=== PATIENT | female | born 1985 | race Two or more races ===

== ENCOUNTER 2021-01-07 13:09 | Emergency (ER) | payer MEDICAID ==
[~2021-01-07] VITALS: Ht 160 cm; Wt 62.1 kg
[2021-01-07] MEDS ORDERED: MORPHINE SULFATE 4 MG/1 ML DISP.SYRIN IM ONE (13:45)
[2021-01-07] MEDS ORDERED: ONDANSETRON ODT 4 MG TAB.RAPDIS SL STA (13:52)
[2021-01-07] MEDS ORDERED: MORPHINE SULFATE 4 MG/1 ML DISP.SYRIN ONE (13:53)
[2021-01-07] MEDS ORDERED: ONDANSETRON ODT 4 MG TAB.RAPDIS ONE (13:57)
[2021-01-07] MEDS ORDERED: DOCU100C36 PO (13:59)
[2021-01-07] MEDS ORDERED: HYDR-4209 PO (13:59)
[2021-01-07] MEDS ORDERED: ONDA4TAB11 PO (13:59)
[2021-01-07] MEDS ORDERED: HYDR453.3 TP (13:59)
--- NOTE | 2021-01-07 14:12 | NUR ---
Gave pt RX and d/c instructions, pt verbalized understanding.
== END 2021-01-07 14:16 | disposition home or self-care (01) ==
LOC: ER 13:23
DX: K64.5 Perianal venous thrombosis (principal)
CPT/HCPCS: 96372; 99283; J2270; A4663; Q0162

== ENCOUNTER 2023-03-28 00:53 | Emergency (ER) | payer MEDICAID ==
[~2023-03-28 00:53] MED LIST: DOCU100C36 PO; HYDR-4209 PO; HYDR453.3 TP; ONDA4TAB11 PO
== END 2023-03-28 02:00 | disposition left against medical advice (07) ==
LOC: ER 01:15
DX: Z53.21 Procedure and treatment not carried out due to patient leaving prior to being seen by health care provider (principal)